=== PATIENT | male | born 1945 | race Hispanic/Latino ===

== ENCOUNTER 2022-05-20 10:43 | Outpatient (RCR) | payer OTHER | END 2022-05-22 | LOC: PT 10:43 | PROVIDERS: ATTEND Internal Medicine | DX: I69.351 Hemiplegia and hemiparesis following cerebral infarction affecting right dominant side (principal); M25.531 Pain in right wrist; R26.9 Unspecified abnormalities of gait and mobility | CPT/HCPCS: 92523 ==

== ENCOUNTER → 2022-06-21 | Outpatient (RCR) | payer OTHER | LOC: PT 05-23 07:13 → OT 05-29 12:50 → PT 05-29 14:00 → OT 06-17 12:59 → PT 11:00 | PROVIDERS: ATTEND Internal Medicine | DX: I69.351 Hemiplegia and hemiparesis following cerebral infarction affecting right dominant side (principal); M25.531 Pain in right wrist; R26.9 Unspecified abnormalities of gait and mobility ==

== ENCOUNTER → 2022-07-22 | Outpatient (RCR) | payer OTHER | LOC: PT 06-26 13:06 | PROVIDERS: ATTEND Internal Medicine | DX: I63.9 Cerebral infarction, unspecified (principal); G81.91 Hemiplegia, unspecified affecting right dominant side; I69.920 Aphasia following unspecified cerebrovascular disease; M25.531 Pain in right wrist; Z74.09 Other reduced mobility ==

== ENCOUNTER 2022-08-14 12:57 | Outpatient (RCR) | payer OTHER | END 2022-08-21 | LOC: PT 12:57 | PROVIDERS: ATTEND Internal Medicine | DX: G81.91 Hemiplegia, unspecified affecting right dominant side (principal); I69.920 Aphasia following unspecified cerebrovascular disease; M25.531 Pain in right wrist; Z74.09 Other reduced mobility ==